=== PATIENT | male | born 1965 | race African-American/Black ===

== ENCOUNTER 2023-05-24 03:06 | Emergency (ER) | payer SELFPAY ==
[~2023-05-24] VITALS: Ht 185.4 cm; Wt 91.0 kg
[2023-05-24 03:09] VITALS: BP 128/90; O2SAT 100
[2023-05-24] MEDS ORDERED: ACETAMINOPHEN 325MG TABLET PO ONE (03:30)
[2023-05-24] MEDS ORDERED: GABAPENTIN 300MG CAPSULE PO ONE (03:30)
[2023-05-24] MEDS: RIVAROXABAN 10 MG TABLET PO SCH ×2 (03:57→05:01)
[2023-05-24] MEDS ORDERED: RIVA10TA MT (05:16)
[2023-05-24] MEDS ORDERED: ACET-2708 MT (05:16)
[2023-05-24 05:29] VITALS: PULSE 84; RESP 16; TEMP 99.6
== END 2023-05-24 05:30 | disposition home or self-care (01) ==
LOC: ER 03:25
DX: M79.604 Pain in right leg (principal); J45.909 Unspecified asthma, uncomplicated; I10 Essential (primary) hypertension; Z86.718 Personal history of other venous thrombosis and embolism; Z76.0 Encounter for issue of repeat prescription
CPT/HCPCS: 93971; 99284; Z7610

== ENCOUNTER 2023-09-20 17:34 | Emergency (ER) | payer MEDICAID, OTHER ==
[~2023-09-20] VITALS: Ht 175.3 cm; Wt 90.0 kg
[~2023-09-20 17:34] MED LIST: ACET-2708 MT; RIVA10TA MT
[2023-09-20 17:40] VITALS: BP 138/82; PULSE 90; RESP 16; TEMP 98.2; O2SAT 98
[2023-09-20 19:16] LABS: BASOPHILS % 0.3 % (0.0-2.0); EOSINOPHILS % 2.7 % (0.0-5.0); HEMOGLOBIN. 8.2 g/dL (14.0-18.0); LYMPHOCYTES % 20.6 % (20.0-50.0); MEAN CORPUSCULAR HEMOGLOBIN 21.9 pg (28.0-32.0); MEAN CORPUSCULAR HGB CONC 30.3 g/dL (31.0-37.0); MEAN CORPUSCULAR VOLUME 72.3 fL (80.0-94.0); MEAN PLATELET VOLUME 6.7 fl (7.4-10.4); MONOCYTES % 10.3 % (2.0-8.0); NEUTROPHILS % 66.1 % (40.0-76.0); PLATELET 390 x1000/uL (130-400); RED BLOOD CELL COUNT 3.73 mill/uL (4.7-6.1); WHITE BLOOD COUNT 6.9 x1000/uL (4.5-11.0)
[2023-09-20 19:17] LABS: ADD RBC MORPHOLOGY YES; DIFFERENTIAL COMMENT 1
[2023-09-20 19:37] LABS: ALANINE AMINOTRANSFERASE 11 IU/L (10-49); ALBUMIN 3.7 g/dL (3.2-4.8); ASPARTATE AMINOTRANSFERASE 13 IU/L (<34); BILIRUBIN TOTAL 0.2 mg/dL (0.1-1.0); CALCIUM 8.7 mg/dL (8.7-10.4); CARBON DIOXIDE 26 mEq/L (21-32); CHLORIDE 108 mEq/L (98-107); CREATININE 0.7 mg/dL (0.6-1.3); GLUCOSE 106 mg/dL (70-105); POTASSIUM 3.8 mEq/L (3.5-5.1); PROTEIN TOTAL 6.9 g/dL (6.0-8.3); SODIUM 139 mEq/L (136-145); UREA NITROGEN BLOOD 13 mg/dL (9-23)
[2023-09-20 19:38] LABS: ETHANOL BLOOD < 10 mg/dL (<10)
[2023-09-20 21:25] LABS: ANISOCYTOSIS 2+; HYPOCHROMASIA 2+; MICROCYTOSIS 2+; PLATELET ESTIMATE NORMAL
[2023-09-20] MEDS ORDERED: KETOROLAC 30MG/ML VIAL IM ONE (23:30)
== END 2023-09-20 23:55 | disposition home or self-care (01) ==
LOC: ER 17:34
DX: R10.9 Unspecified abdominal pain (principal); I10 Essential (primary) hypertension; J45.909 Unspecified asthma, uncomplicated; Z98.890 Other specified postprocedural states
CPT/HCPCS: 36415; 80053; 80320; 85025; 99283; G0480